=== PATIENT | male | born 1945 | race Two or more races ===

== ENCOUNTER → 2017-10-03 | Outpatient (CLI) | payer MEDICARE, MEDICAID ==
--- NOTE | 2017-10-03 12:00 | Diagnostic Imaging Report ---
Indication: Cough, preop Technique: XRAY Chest 2v Comparison: None Findings: Heart size and mediastinal contours are within normal limits. There is no focal airspace consolidation, pleural effusion or pneumothorax. There are mild degenerative changes of the spine. No acute osseous abnormality is seen. IMPRESSION: No radiographic evidence of acute cardiopulmonary disease. No focal airspace consolidation.
== END | disposition home or self-care (01) ==
LOC: RAD 09:58
DX: Z01.818 Encounter for other preprocedural examination (principal); R05 Cough
CPT/HCPCS: 71046